=== PATIENT | female | born 1970 | race African-American/Black ===

== ENCOUNTER 2022-02-08 11:07 | Inpatient (IN) | payer BC ==
[2022-02-08] VITALS (36 sets, daily range): BP systolic 101–176; BP diastolic 63–112
[~2022-02-08] VITALS: Ht 167.6 cm; Wt 72.6 kg
[~2022-02-08 11:07] MED LIST: ETOMIDATE 2MG/ML 10ML VIAL IV ONE; SUCCINYLCHOLINE CHLORIDE 200MG/10ML IV ONE
[2022-02-08] MEDS ORDERED: MIDAZOLAM HCL 2 MG/2 ML VIAL IV ONE (11:45)
[2022-02-08] MEDS ORDERED: SODIUM CHLORIDE 0.9% 1,000 ML IV ONE (11:45)
[2022-02-08] MEDS ORDERED: OLANZAPINE 10 MG/VIAL IM ONE (12:00)
[2022-02-08 12:28] LABS: BASOPHILS % 0.3 % (0.0-2.0); EOSINOPHILS % 0.1 % (0.0-5.0); HEMATOCRIT. 45.4 % (36.0-48.0); LYMPHOCYTES % 39.1 % (20.0-50.0); MEAN CORPUSCULAR HEMOGLOBIN 29.9 pg (28.0-32.0); MEAN CORPUSCULAR VOLUME 96.8 fL (81.0-99.0); MONOCYTES % 4.8 % (2.0-8.0); NEUTROPHILS % 55.7 % (40.0-76.0); PLATELET 126 x1000/uL (130-400); RED BLOOD CELL COUNT 4.69 mill/uL (4.2-5.4); RED CELL DISTRIBUTION WIDTH 14.6 % (11.6-14.6)
[2022-02-08] MEDS ORDERED: ACETAMINOPHEN 650MG SUPP PR ONE (12:30)
[2022-02-08 12:32] LABS: CHLORIDE 105 mEq/L (98-107)
[2022-02-08 12:36] LABS: HCG SCREEN NEGATIVE
[2022-02-08 12:40] LABS: ETHANOL BLOOD < 10 mg/dL
[2022-02-08] MEDS ORDERED: LORAZEPAM 2MG/ML CPJ IV ONE (12:45)
[2022-02-08] MEDS ORDERED: PIPERACILLIN/TAZ 3.375G PREMIX 50 ML IV ONE (13:00)
[2022-02-08] MEDS ORDERED: ETOMIDATE 2MG/ML 10ML VIAL IV ONE (13:00)
[2022-02-08] MEDS ORDERED: SUCCINYLCHOLINE CHLORIDE 200MG/10ML IV ONE (13:00)
[2022-02-08] MEDS ORDERED: VANCOMYCIN 1G PREMIX 200 ML IV ONE (13:00)
[2022-02-08] MEDS ORDERED: PROPOFOL 10MG/ML 100ML 100 ML IV ONE (13:00)
[2022-02-08 13:29] LABS: PROTHROMBIN TIME 10.9 sec (9.6-11.0)
[2022-02-08] MEDS ORDERED: LEVETIRACETAM 1000MG PREMIX 100 ML IV ONE (13:30)
[2022-02-08 13:58] LABS: BG BASE EXCESS -1.3 mmol/L (-2.0-2.0); BG CARBOXYHEMOGLOBIN 0.3 % (0.5-1.5); BG DEOXYHEMOGLOBIN 0.9 % (0.0-5.0); BG FRACTION INSPIRED OXYGEN 60; BG HCO3 ACT 23.7 mmol/L (22.0-26.0); BG METHEMOGLOBIN 0.2 % (0.0-1.5); BG OXYGEN SATURATION 99.1 % (92.0-98.5); BG OXYHEMOGLOBIN 98.6 % (94.0-97.0); BG PCO2 40.9 mmHg (35.0-45.0); BG PH 7.381 (7.350-7.450); BG PO2 286.9 mmHg (75.0-100.0); BG SAMPLE SITE RIGHT BRACHIAL; BG TOTAL HEMOGLOBIN 13.5 g/dL (12.0-18.0); BG VENT MODE VENT - AC
[2022-02-08] MEDS ORDERED: MIDAZOLAM HCL 100 MG in DEXT 5% WATER 80 ML IV ONE ×4 (14:30)
[2022-02-08] MEDS ORDERED: MORPHINE SULFATE 10 MG/ML CPJ IV ONE (14:30)
[2022-02-08] MEDS ORDERED: VECURONIUM BROMIDE 10 MG/VIAL IV ONE (14:30)
[2022-02-08] MEDS ORDERED: NITROGLYCERIN 0.4MG TABLET SL SL PRN (14:45)
[2022-02-08] MEDS ORDERED: SODIUM CHLORIDE 0.9% 1000ML BAG (SEPSIS BOLUS) IV ONE (14:45)
[2022-02-08] MEDS ORDERED: MAGNESIUM/ALUMINUM HYDROXIDE/SIMETHICONE 30ML UDC PO PRN (14:45)
[2022-02-08] MEDS ORDERED: PIPERACILLIN/TAZ 3.375G PREMIX 50 ML IV SCH (14:45)
[2022-02-08] MEDS ORDERED: NA PHOS,M-B/NA PHOS,DI-BA ENEMA 118ML PR PRN (14:45)
[2022-02-08] MEDS ORDERED: LEVETIRACETAM 500 MG in SODIUM CHLORIDE 0.9% 100 ML IV SCH (14:45)
[2022-02-08] MEDS ORDERED: IPRATROPIUM/ALBUTEROL 0.5-3(2.5)MG/3ML NEB NEB PRN (14:45)
[2022-02-08] MEDS ORDERED: GUAIFENESIN 200MG/10ML SUGAR FREE UDC PO PRN (14:45)
[2022-02-08] MEDS ORDERED: DIAZEPAM 5 MG/ML 2ML CPJ IV PRN (14:45)
[2022-02-08] MEDS ORDERED: ONDANSETRON HCL 4MG/2ML INJ IV PRN (14:45)
[2022-02-08] MEDS ORDERED: KETOROLAC 15MG/ML VIAL IV PRN (14:45)
[2022-02-08] MEDS ORDERED: ACETAMINOPHEN 325MG TABLET PO PRN (14:45)
[2022-02-08] MEDS: DEXT 5%/LACTATED RINGERS 1,000 ML IV SCH (15:41)
[2022-02-08] MEDS: ENOXAPARIN 30MG/0.3ML SYR SUBCUT SCH (15:42)
[2022-02-08] MEDS ORDERED: KCL 20MEQ/100ML PREMIX 100 ML IV NR (16:00)
[2022-02-08] MEDS: PROPOFOL 10MG/ML 100ML 100 ML IV PRN ×3 (16:00→22:29)
[2022-02-08 16:14] LABS: CLARITY URINE TURBID (CLEAR); COLOR URINE YELLOW (YELLOW); KETONES URINE TRACE (NEGATIVE); LEUKOCYTE ESTERASE URINE NEGATIVE (NEGATIVE); NITRITE URINE NEGATIVE (NEGATIVE); OCCULT BLOOD URINE 2+ (NEGATIVE); PH URINE 5.5 (4.5-8.0); PROTEIN URINE 2+ (NEGATIVE); SPECIFIC GRAVITY URINE 1.017 (1.005-1.030); UROBILINOGEN URINE 0.2 E.U./dL (0.2-1.0)
[2022-02-08 16:31] LABS: T4 FREE 1.07 ng/dL (0.76-1.46)
[2022-02-08 16:48] LABS: VITAMIN B12 SERUM 697 pg/mL (211-911)
[2022-02-08 16:55] LABS: FOLIC ACID (FOLATE) SERUM > 20.00 ng/mL (>5.38)
[2022-02-08 17:21] LABS: *AMPHETAMINES SCREEN URINE NEGATIVE (NEGATIVE); *BARBITURATES SCREEN URINE NEGATIVE (NEGATIVE); *COCAINE SCREEN URINE NEGATIVE (NEGATIVE); CANNABINOID URINE SCREEN NEGATIVE (NEGATIVE); METHADONE URINE SCREEN NEGATIVE (NEGATIVE); OPIATES URINE SCREEN NEGATIVE (NEGATIVE); PHENCYCLIDINE URINE SCREEN NEGATIVE (NEGATIVE)
[2022-02-08] MEDS: PIPERACILLIN/TAZOBACTAM 3.375G in DEXT 5% WATER 50ML IV SCH ×2 (17:27→22:25)
[2022-02-08 17:42] LABS: *BENZODIAZEPINES SCREEN URINE PRESUMTIVE POSITIVE (NEGATIVE)
[2022-02-08] MEDS: VANCOMYCIN 500MG PREMIX 100 ML IV SCH (17:51)
[2022-02-08] MEDS: IPRATROPIUM/ALBUTEROL 0.5-3(2.5)MG/3ML NEB HHN SCH ×2 (19:44→23:28)
[2022-02-08] MEDS: LEVETIRACETAM 500MG PREMIX 100 ML IV SCH (20:34)
[2022-02-09] VITALS (91 sets, daily range): BP systolic 85–138; BP diastolic 23–95
[2022-02-09 00:43] LABS: CREATINE KINASE 699 IU/L (26-192); CREATINE KINASE MB FRACTION 3.6 ng/mL (0.5-3.6)
[2022-02-09] MEDS: PROPOFOL 10MG/ML 100ML 100 ML IV PRN ×3 (03:15→20:41)
[2022-02-09] MEDS: IPRATROPIUM/ALBUTEROL 0.5-3(2.5)MG/3ML NEB HHN SCH ×5 (03:21→19:54)
[2022-02-09] MEDS: DEXT 5%/LACTATED RINGERS 1,000 ML IV SCH ×2 (04:05→11:00)
[2022-02-09 05:49] LABS: BASOPHILS % 0.4 % (0.0-2.0); EOSINOPHILS % 0.2 % (0.0-5.0); HEMATOCRIT. 35.7 % (36.0-48.0); HEMOGLOBIN. 11.6 g/dL (12.0-16.0); LYMPHOCYTES % 39.9 % (20.0-50.0); MEAN CORPUSCULAR HEMOGLOBIN 29.8 pg (28.0-32.0); MEAN CORPUSCULAR VOLUME 91.7 fL (81.0-99.0); MEAN PLATELET VOLUME 9.9 fl (7.4-10.4); NEUTROPHILS % 47.5 % (40.0-76.0); PLATELET 103 x1000/uL (130-400); RED BLOOD CELL COUNT 3.89 mill/uL (4.2-5.4); RED CELL DISTRIBUTION WIDTH 14.1 % (11.6-14.6)
[2022-02-09] MEDS: VANCOMYCIN 500MG PREMIX 100 ML IV SCH (05:54)
[2022-02-09] MEDS: PIPERACILLIN/TAZOBACTAM 3.375G in DEXT 5% WATER 50ML IV SCH ×3 (05:54→22:59)
[2022-02-09 06:12] LABS: CHLORIDE 112 mEq/L (98-107)
[2022-02-09 06:26] LABS: CREATINE KINASE 756 IU/L (26-192); CREATINE KINASE MB FRACTION 3.5 ng/mL (0.5-3.6); PHOSPHORUS 2.4 mg/dL (2.5-4.9)
[2022-02-09] MEDS: PANTOPRAZOLE SODIUM 40 MG/VIAL IV SCH (08:37)
[2022-02-09 08:58] LABS: BG BASE EXCESS -3.7 mmol/L (-2.0-2.0); BG CARBOXYHEMOGLOBIN 0.4 % (0.5-1.5); BG DEOXYHEMOGLOBIN 1.8 % (0.0-5.0); BG FRACTION INSPIRED OXYGEN 40; BG HCO3 ACT 20.6 mmol/L (22.0-26.0); BG METHEMOGLOBIN 0.2 % (0.0-1.5); BG OXYGEN SATURATION 98.2 % (92.0-98.5); BG OXYHEMOGLOBIN 97.6 % (94.0-97.0); BG PCO2 34.9 mmHg (35.0-45.0); BG PH 7.388 (7.350-7.450); BG PO2 142.6 mmHg (75.0-100.0); BG SAMPLE SITE LEFT BRACHIAL; BG TOTAL HEMOGLOBIN 12.7 g/dL (12.0-18.0); BG VENT MODE VENT - AC
[2022-02-09] MEDS: LEVETIRACETAM 500MG PREMIX 100 ML IV SCH ×2 (09:26→20:38)
[2022-02-09] MEDS: ACETAMINOPHEN 325MG TABLET PO PRN (09:42)
[2022-02-09] MEDS: ENOXAPARIN 30MG/0.3ML SYR SUBCUT SCH (14:47)
[2022-02-09] MEDS ORDERED: PROPOFOL 10MG/ML 100ML 100 ML IV PRN (16:45)
[2022-02-09] MEDS: VANCOMYCIN 1G PREMIX 200 ML IV SCH (18:19)
[2022-02-10] VITALS (66 sets, daily range): BP systolic 80–159; BP diastolic 45–97
[2022-02-10] MEDS ORDERED: VANCOMYCIN 750MG PREMIX 150 ML IV SCH
[2022-02-10] MEDS: IPRATROPIUM/ALBUTEROL 0.5-3(2.5)MG/3ML NEB HHN SCH ×6 (00:30→20:19)
[2022-02-10] MEDS: PROPOFOL 10MG/ML 100ML 100 ML IV PRN (03:11)
[2022-02-10 05:19] LABS: CHLORIDE 114 mEq/L (98-107)
[2022-02-10 05:21] LABS: BASOPHILS % 0.4 % (0.0-2.0); EOSINOPHILS % 1.3 % (0.0-5.0); HEMATOCRIT. 33.5 % (36.0-48.0); HEMOGLOBIN. 11.1 g/dL (12.0-16.0); MEAN CORPUSCULAR HEMOGLOBIN 30.2 pg (28.0-32.0); MONOCYTES % 9.5 % (2.0-8.0); NEUTROPHILS % 58.8 % (40.0-76.0); PLATELET 114 x1000/uL (130-400); RED BLOOD CELL COUNT 3.68 mill/uL (4.2-5.4); RED CELL DISTRIBUTION WIDTH 14.4 % (11.6-14.6)
[2022-02-10 05:30] LABS: CREATINE KINASE 568 IU/L (26-192)
[2022-02-10] MEDS: PIPERACILLIN/TAZOBACTAM 3.375G in DEXT 5% WATER 50ML IV SCH ×3 (05:52→22:52)
[2022-02-10] MEDS: VANCOMYCIN 1G PREMIX 200 ML IV SCH ×2 (05:53→17:18)
[2022-02-10] MEDS: DEXT 5%/LACTATED RINGERS 1,000 ML IV SCH ×2 (05:53→23:05)
[2022-02-10] MEDS ORDERED: KETOROLAC 15MG/ML VIAL IV PRN (07:45)
[2022-02-10] MEDS ORDERED: DIAZEPAM 5 MG/ML 2ML CPJ IV PRN (07:45)
[2022-02-10] MEDS: PANTOPRAZOLE SODIUM 40 MG/VIAL IV SCH (08:38)
[2022-02-10] MEDS: LEVETIRACETAM 500MG PREMIX 100 ML IV SCH ×2 (08:38→22:53)
[2022-02-10 08:41] LABS: BG BASE EXCESS 0.2 mmol/L (-2.0-2.0); BG CARBOXYHEMOGLOBIN 0.3 % (0.5-1.5); BG DEOXYHEMOGLOBIN 1.9 % (0.0-5.0); BG FRACTION INSPIRED OXYGEN 30; BG HCO3 ACT 23.6 mmol/L (22.0-26.0); BG METHEMOGLOBIN 0.2 % (0.0-1.5); BG OXYGEN SATURATION 98.1 % (92.0-98.5); BG OXYHEMOGLOBIN 97.6 % (94.0-97.0); BG PH 7.459 (7.350-7.450); BG PO2 139.8 mmHg (75.0-100.0); BG SAMPLE SITE RIGHT RADIAL; BG TOTAL HEMOGLOBIN 11.5 g/dL (12.0-18.0); BG VENT MODE VENT - AC
[2022-02-10] MEDS ORDERED: POTASSIUM CHLORIDE 20MEQ/PACKET PO SCH (09:00)
[2022-02-10 12:35] LABS: BG BASE EXCESS -0.4 mmol/L (-2.0-2.0); BG CARBOXYHEMOGLOBIN 0.3 % (0.5-1.5); BG DEOXYHEMOGLOBIN 1.8 % (0.0-5.0); BG FRACTION INSPIRED OXYGEN 30; BG HCO3 ACT 23.6 mmol/L (22.0-26.0); BG METHEMOGLOBIN 0.3 % (0.0-1.5); BG OXYGEN SATURATION 98.2 % (92.0-98.5); BG OXYHEMOGLOBIN 97.6 % (94.0-97.0); BG PCO2 36.3 mmHg (35.0-45.0); BG PH 7.431 (7.350-7.450); BG PO2 139.4 mmHg (75.0-100.0); BG SAMPLE SITE RIGHT RADIAL; BG TOTAL HEMOGLOBIN 11.7 g/dL (12.0-18.0); BG VENT MODE VENT - CPAP
[2022-02-10] MEDS ORDERED: MULT-1146 PO (12:50)
[2022-02-10] MEDS ORDERED: HYDR25TA PO (12:50)
[2022-02-10] MEDS: ENOXAPARIN 40MG/0.4ML SYR SUBCUT SCH (14:40)
[2022-02-11] VITALS (17 sets, daily range): BP systolic 144–163; BP diastolic 74–107
[2022-02-11] MEDS: IPRATROPIUM/ALBUTEROL 0.5-3(2.5)MG/3ML NEB HHN SCH ×6 (00:47→20:36)
[2022-02-11 05:23] LABS: HEMATOCRIT 35.7 % (36.0-48.0); HEMOGLOBIN 11.8 g/dL (12.0-16.0); MEAN CORPUSCULAR HEMOGLOBIN 29.8 pg (28.0-32.0); MEAN CORPUSCULAR VOLUME 90.2 fL (81.0-99.0); PLATELET 147 x1000/uL (130-400); RED BLOOD CELL COUNT 3.96 mill/uL (4.2-5.4)
[2022-02-11 05:45] LABS: CHLORIDE 111 mEq/L (98-107)
[2022-02-11 05:53] LABS: VANCOMYCIN TROUGH 10.5 ug/mL (5.0-10.0)
[2022-02-11] MEDS: PIPERACILLIN/TAZOBACTAM 3.375G in DEXT 5% WATER 50ML IV SCH ×3 (06:30→23:26)
[2022-02-11] MEDS: VANCOMYCIN 1G PREMIX 200 ML IV SCH ×2 (06:30→16:41)
[2022-02-11 09:14] LABS: BG BASE EXCESS 3.3 mmol/L (-2.0-2.0); BG CARBOXYHEMOGLOBIN 0.5 % (0.5-1.5); BG DEOXYHEMOGLOBIN 6.9 % (0.0-5.0); BG FRACTION INSPIRED OXYGEN 28; BG HCO3 ACT 27.4 mmol/L (22.0-26.0); BG OXYGEN SATURATION 93.1 % (92.0-98.5); BG OXYHEMOGLOBIN 92.6 % (94.0-97.0); BG PCO2 39.8 mmHg (35.0-45.0); BG PH 7.456 (7.350-7.450); BG PO2 66.9 mmHg (75.0-100.0); BG SAMPLE SITE RIGHT RADIAL; BG TOTAL HEMOGLOBIN 12.1 g/dL (12.0-18.0); BG VENT MODE NASAL CANNULA
[2022-02-11] MEDS: PANTOPRAZOLE SODIUM 40 MG/VIAL IV SCH (09:16)
[2022-02-11] MEDS: DEXT 5%/LACTATED RINGERS 1,000 ML IV SCH (09:17)
[2022-02-11] MEDS: LEVETIRACETAM 500MG PREMIX 100 ML IV SCH (09:17)
[2022-02-11] MEDS ORDERED: THROAT LOZENGES-BENZOCAINE/MENTH/CETYLPYRD CL LOZENGES MM PRN (12:00)
[2022-02-11] MEDS ORDERED: PHENOL/SODIUM PHENOLATE 1.4% SRPAY 177ML MM NR (13:00)
[2022-02-11] MEDS: ENOXAPARIN 40MG/0.4ML SYR SUBCUT SCH (14:00)
[2022-02-11] MEDS ORDERED: LORAZEPAM 2MG/ML CPJ IV PRN (14:45)
[2022-02-11] MEDS: LEVETIRACETAM 1000MG PREMIX 100 ML IV SCH (18:01)
[2022-02-11] MEDS ORDERED: GADOTERATE MEGLUMINE 5 MMOL/10 ML VIAL IV ONE (19:37)
[2022-02-12] VITALS: BP 136/72
[2022-02-12] MEDS: IPRATROPIUM/ALBUTEROL 0.5-3(2.5)MG/3ML NEB HHN SCH ×5 (00:23→20:10)
[2022-02-12] MEDS: VANCOMYCIN 1G PREMIX 200 ML IV SCH ×2 (00:31→05:57)
[2022-02-12] MEDS: DEXT 5%/LACTATED RINGERS 1,000 ML IV SCH ×2 (03:50→16:01)
[2022-02-12 04:00] VITALS: BP 150/78
[2022-02-12 07:34] LABS: CHLORIDE 109 mEq/L (98-107)
[2022-02-12 07:40] LABS: VANCOMYCIN TROUGH 23.4 ug/mL (5.0-10.0)
[2022-02-12] MEDS ORDERED: LIDOCAINE HCL/PF 1% 10 MG/ML 5ML VIAL ONE (07:44)
[2022-02-12 08:00] VITALS: BP 145/65
[2022-02-12] MEDS: PANTOPRAZOLE SODIUM 40 MG/VIAL IV SCH (09:31)
[2022-02-12] MEDS: LEVETIRACETAM 1000MG PREMIX 100 ML IV SCH (09:31)
[2022-02-12 10:25] LABS: GLUCOSE CSF 95 mg/dL (41-75)
[2022-02-12] MEDS: PIPERACILLIN/TAZOBACTAM 3.375G in DEXT 5% WATER 50ML IV SCH ×2 (10:30→16:00)
[2022-02-12] MEDS: PHENYTOIN SODIUM 1,000 MG in SODIUM CHLORIDE 0.9% 100 ML IV SCH (11:50)
[2022-02-12 12:00] VITALS: BP 157/83
[2022-02-12] MEDS: KCL 20MEQ/100ML PREMIX 100 ML IV SCH ×2 (14:30→16:42)
[2022-02-12] MEDS ORDERED: LEVETIRACETAM 1000MG PREMIX 100 ML IV NR (14:30)
[2022-02-12] MEDS: ENOXAPARIN 40MG/0.4ML SYR SUBCUT SCH (14:32)
[2022-02-12 16:00] VITALS: BP 145/77
[2022-02-12] MEDS ORDERED: VANCOMYCIN 750MG PREMIX 150 ML IV SCH (18:00)
[2022-02-12] MEDS ORDERED: LEVETIRACETAM 500 MG in SODIUM CHLORIDE 0.9% 100 ML IV PRN (19:45)
[2022-02-12 20:00] VITALS: BP 165/89
[2022-02-12] MEDS: LEVETIRACETAM 1,500 MG in SODIUM CHLORIDE 0.9% 100 ML IV SCH (21:29)
[2022-02-12] MEDS: METHYLPREDNISOLONE SOD SUCC 1,000 MG in DEXT 5% WATER 100 ML IV SCH (22:18)
[2022-02-13] VITALS (8 sets, daily range): BP systolic 142–195; BP diastolic 79–133
[2022-02-13] MEDS: IPRATROPIUM/ALBUTEROL 0.5-3(2.5)MG/3ML NEB HHN SCH ×4 (00:05→12:25)
[2022-02-13 06:41] LABS: BASOPHILS % 0.1 % (0.0-2.0); HEMATOCRIT. 36.6 % (36.0-48.0); HEMOGLOBIN. 12.1 g/dL (12.0-16.0); LYMPHOCYTES % 14.9 % (20.0-50.0); MEAN CORPUSCULAR HEMOGLOBIN 29.7 pg (28.0-32.0); MEAN CORPUSCULAR VOLUME 89.8 fL (81.0-99.0); MEAN PLATELET VOLUME 9.5 fl (7.4-10.4); MONOCYTES % 2.1 % (2.0-8.0); NEUTROPHILS % 82.9 % (40.0-76.0); PLATELET 218 x1000/uL (130-400); RED BLOOD CELL COUNT 4.07 mill/uL (4.2-5.4); RED CELL DISTRIBUTION WIDTH 13.5 % (11.6-14.6)
[2022-02-13 07:01] LABS: CHLORIDE 100 mEq/L (98-107)
[2022-02-13] MEDS: LEVETIRACETAM 1,500 MG in SODIUM CHLORIDE 0.9% 100 ML IV SCH ×2 (10:31→20:45)
[2022-02-13] MEDS: PHENYTOIN SODIUM 1,000 MG in SODIUM CHLORIDE 0.9% 100 ML IV SCH (10:32)
[2022-02-13] MEDS: PANTOPRAZOLE SODIUM 40 MG/VIAL IV SCH (11:07)
[2022-02-13] MEDS: CLONIDINE 0.1MG TABLET PO PRN ×2 (11:11→17:26)
[2022-02-13] MEDS: ACETAMINOPHEN 325MG TABLET PO PRN ×2 (11:16→16:22)
[2022-02-13 11:23] LABS: BG BASE EXCESS 6.8 mmol/L (-2.0-2.0); BG CARBOXYHEMOGLOBIN 0.6 % (0.5-1.5); BG DEOXYHEMOGLOBIN 14.1 % (0.0-5.0); BG FRACTION INSPIRED OXYGEN 28; BG HCO3 ACT 34.8 mmol/L (22.0-26.0); BG METHEMOGLOBIN 0.3 % (0.0-1.5); BG OXYGEN SATURATION 85.8 % (92.0-98.5); BG PCO2 65.3 mmHg (35.0-45.0); BG PH 7.344 (7.350-7.450); BG PO2 55.4 mmHg (75.0-100.0); BG SAMPLE SITE RIGHT RADIAL; BG TOTAL HEMOGLOBIN 13.9 g/dL (12.0-18.0); BG VENT MODE NASAL CANNULA
[2022-02-13] MEDS: DEXT 5%/LACTATED RINGERS 1,000 ML IV SCH ×2 (11:25→12:57)
[2022-02-13] MEDS: DOXYCYCLINE HYCLATE 100MG CAPSULE PO SCH ×2 (12:55→16:21)
[2022-02-13] MEDS: ENOXAPARIN 40MG/0.4ML SYR SUBCUT SCH (12:55)
[2022-02-13] MEDS ORDERED: AMLODIPINE 5MG TABLET PO SCH (13:30)
[2022-02-13] MEDS: NITROGLYCERIN OINT 1GM/INCH UDPKT TD SCH ×2 (13:55→21:21)
[2022-02-13] MEDS ORDERED: LEVETIRACETAM 500MG PREMIX 100 ML IV PRN (14:15)
[2022-02-13] MEDS: IPRATROPIUM BROMIDE (0.02%) 0.5MG/2.5ML NEB HHN SCH ×2 (17:28→20:34)
[2022-02-13] MEDS: AMLODIPINE 5MG TABLET PO SCH (21:22)
[2022-02-13] MEDS ORDERED: PHENYTOIN SODIUM 1,000 MG in SODIUM CHLORIDE 0.9% 100 ML IV NR (23:00)
[2022-02-13] MEDS: PROPOFOL 10MG/ML 100ML 100 ML IV PRN (23:58)
[2022-02-14] VITALS (52 sets, daily range): BP systolic 79–147; BP diastolic 47–96
[2022-02-14] MEDS: METHYLPREDNISOLONE SOD SUCC 1,000 MG in DEXT 5% WATER 100 ML IV SCH (00:52)
[2022-02-14] MEDS: IPRATROPIUM BROMIDE (0.02%) 0.5MG/2.5ML NEB HHN SCH ×4 (01:36→20:04)
[2022-02-14] MEDS ORDERED: IOHEXOL-350 100 ML BOTTLE ONE (03:06)
[2022-02-14 03:20] LABS: BG BASE EXCESS 4.2 mmol/L (-2.0-2.0); BG CARBOXYHEMOGLOBIN 0.3 % (0.5-1.5); BG DEOXYHEMOGLOBIN 1.4 % (0.0-5.0); BG FRACTION INSPIRED OXYGEN 100; BG HCO3 ACT 25.7 mmol/L (22.0-26.0); BG METHEMOGLOBIN 0.2 % (0.0-1.5); BG OXYGEN SATURATION 98.6 % (92.0-98.5); BG OXYHEMOGLOBIN 98.1 % (94.0-97.0); BG PCO2 29.8 mmHg (35.0-45.0); BG PH 7.554 (7.350-7.450); BG PO2 139.2 mmHg (75.0-100.0); BG SAMPLE SITE RIGHT RADIAL; BG TOTAL HEMOGLOBIN 13.9 g/dL (12.0-18.0); BG VENT MODE VENT - AC
[2022-02-14] MEDS: DEXT 5%/LACTATED RINGERS 1,000 ML IV SCH ×2 (04:22→17:54)
[2022-02-14 05:25] LABS: BASOPHILS % 0.2 % (0.0-2.0); HEMATOCRIT. 40.6 % (36.0-48.0); HEMOGLOBIN. 13.3 g/dL (12.0-16.0); LYMPHOCYTES % 15.1 % (20.0-50.0); MEAN CORPUSCULAR HEMOGLOBIN 29.4 pg (28.0-32.0); MEAN CORPUSCULAR VOLUME 89.4 fL (81.0-99.0); MEAN PLATELET VOLUME 9.5 fl (7.4-10.4); MONOCYTES % 14.3 % (2.0-8.0); NEUTROPHILS % 70.4 % (40.0-76.0); PLATELET 270 x1000/uL (130-400); RED BLOOD CELL COUNT 4.54 mill/uL (4.2-5.4); RED CELL DISTRIBUTION WIDTH 13.5 % (11.6-14.6)
[2022-02-14 05:45] LABS: CHLORIDE 99 mEq/L (98-107)
[2022-02-14] MEDS: NITROGLYCERIN OINT 1GM/INCH UDPKT TD SCH ×3 (05:55→21:52)
[2022-02-14] MEDS: PROPOFOL 10MG/ML 100ML 100 ML IV PRN ×2 (06:37→17:41)
[2022-02-14] MEDS ORDERED: VECURONIUM BROMIDE 10 MG/VIAL IV ONE (08:27)
[2022-02-14] MEDS ORDERED: SODIUM CHLORIDE 0.9% 10ML VIAL ONE (08:27)
[2022-02-14] MEDS ORDERED: ETOMIDATE 2MG/ML 10ML VIAL IV ONE (08:27)
[2022-02-14 08:48] LABS: BG BASE EXCESS 4.6 mmol/L (-2.0-2.0); BG CARBOXYHEMOGLOBIN 0.1 % (0.5-1.5); BG FRACTION INSPIRED OXYGEN 80; BG HCO3 ACT 28.4 mmol/L (22.0-26.0); BG METHEMOGLOBIN 0.4 % (0.0-1.5); BG OXYHEMOGLOBIN 98.5 % (94.0-97.0); BG PCO2 39.6 mmHg (35.0-45.0); BG PH 7.474 (7.350-7.450); BG PO2 214.3 mmHg (75.0-100.0); BG SAMPLE SITE RIGHT RADIAL; BG TOTAL HEMOGLOBIN 14.6 g/dL (12.0-18.0); BG VENT MODE VENT - AC
[2022-02-14] MEDS: FAMOTIDINE 20MG/2ML VIAL IV SCH ×2 (10:25→21:12)
[2022-02-14] MEDS: AMLODIPINE 5MG TABLET PO SCH ×2 (10:26→21:00)
[2022-02-14] MEDS: ACYCLOVIR INJ 750 MG in DEXT 5% WATER 100 ML IV SCH ×2 (10:26→18:52)
[2022-02-14] MEDS: PHENYTOIN SODIUM 100MG/2ML VIAL IV SCH ×2 (10:28→17:54)
[2022-02-14] MEDS ORDERED: LACTATED RINGERS 1,000 ML IV SCH (10:30)
[2022-02-14] MEDS ORDERED: KCL 20MEQ/100ML PREMIX 100 ML IV NR (13:00)
[2022-02-14] MEDS: LEVETIRACETAM 1,500 MG in SODIUM CHLORIDE 0.9% 100 ML IV SCH ×2 (14:04→21:21)
[2022-02-14] MEDS: DOXYCYCLINE HYCLATE 100MG CAPSULE PO SCH ×2 (14:04→17:40)
[2022-02-14] MEDS: ENOXAPARIN 40MG/0.4ML SYR SUBCUT SCH (14:07)
[2022-02-14] MEDS: PIPERACILLIN/TAZOBACTAM 3.375 G in DEXTROSE 5% WATER 50 ML IV SCH ×2 (14:08→21:50)
[2022-02-15] VITALS (46 sets, daily range): BP systolic 90–118; BP diastolic 47–73
[2022-02-15] MEDS: DEXT 5%/LACTATED RINGERS 1,000 ML IV SCH ×3 (01:16→16:55)
[2022-02-15] MEDS: ACYCLOVIR INJ 750 MG in DEXT 5% WATER 100 ML IV SCH ×3 (01:17→17:05)
[2022-02-15] MEDS: IPRATROPIUM BROMIDE (0.02%) 0.5MG/2.5ML NEB HHN SCH ×4 (03:48→22:00)
[2022-02-15] MEDS: PROPOFOL 10MG/ML 100ML 100 ML IV PRN ×4 (04:01→21:04)
[2022-02-15 05:40] LABS: BASOPHILS % 0.2 % (0.0-2.0); HEMATOCRIT. 36.1 % (36.0-48.0); HEMOGLOBIN. 11.9 g/dL (12.0-16.0); LYMPHOCYTES % 18.9 % (20.0-50.0); MEAN CORPUSCULAR HEMOGLOBIN 29.5 pg (28.0-32.0); MEAN CORPUSCULAR VOLUME 89.8 fL (81.0-99.0); MEAN PLATELET VOLUME 9.7 fl (7.4-10.4); MONOCYTES % 13.1 % (2.0-8.0); NEUTROPHILS % 67.8 % (40.0-76.0); PLATELET 226 x1000/uL (130-400); RED BLOOD CELL COUNT 4.02 mill/uL (4.2-5.4); RED CELL DISTRIBUTION WIDTH 13.5 % (11.6-14.6)
[2022-02-15 05:57] LABS: CHLORIDE 104 mEq/L (98-107)
[2022-02-15] MEDS: NITROGLYCERIN OINT 1GM/INCH UDPKT TD SCH ×3 (06:00→21:56)
[2022-02-15] MEDS: PIPERACILLIN/TAZOBACTAM 3.375 G in DEXTROSE 5% WATER 50 ML IV SCH ×3 (06:28→21:55)
[2022-02-15] MEDS: FAMOTIDINE 20MG/2ML VIAL IV SCH ×2 (08:11→21:02)
[2022-02-15] MEDS: AMLODIPINE 5MG TABLET PO SCH ×2 (08:11→21:00)
[2022-02-15] MEDS: PHENYTOIN SODIUM 100MG/2ML VIAL IV SCH ×2 (08:11→16:55)
[2022-02-15] MEDS: DOXYCYCLINE HYCLATE 100MG CAPSULE PO SCH ×2 (08:11→17:05)
[2022-02-15] MEDS: LEVETIRACETAM 1,500 MG in SODIUM CHLORIDE 0.9% 100 ML IV SCH ×2 (08:58→21:01)
[2022-02-15 09:08] LABS: BG BASE EXCESS 7.7 mmol/L (-2.0-2.0); BG CARBOXYHEMOGLOBIN 0.1 % (0.5-1.5); BG DEOXYHEMOGLOBIN 1.3 % (0.0-5.0); BG FRACTION INSPIRED OXYGEN 50; BG HCO3 ACT 31.5 mmol/L (22.0-26.0); BG METHEMOGLOBIN 0.3 % (0.0-1.5); BG OXYGEN SATURATION 98.7 % (92.0-98.5); BG OXYHEMOGLOBIN 98.3 % (94.0-97.0); BG PCO2 40.6 mmHg (35.0-45.0); BG PH 7.507 (7.350-7.450); BG PO2 152.7 mmHg (75.0-100.0); BG SAMPLE SITE RIGHT BRACHIAL; BG TOTAL HEMOGLOBIN 12.1 g/dL (12.0-18.0); BG VENT MODE VENT - AC
[2022-02-15] MEDS ORDERED: KCL 20MEQ/100ML PREMIX 100 ML IV SCH (09:30)
[2022-02-15] MEDS ORDERED: FENTANYL 2500MCG/250ML PMX 250 ML IV SCH (11:00)
[2022-02-15] MEDS: ENOXAPARIN 40MG/0.4ML SYR SUBCUT SCH (13:03)
[2022-02-16] VITALS (43 sets, daily range): BP systolic 108–148; BP diastolic 56–103
[2022-02-16] MEDS: DEXT 5%/LACTATED RINGERS 1,000 ML IV SCH ×3 (01:42→17:30)
[2022-02-16] MEDS: ACYCLOVIR INJ 750 MG in DEXT 5% WATER 100 ML IV SCH ×3 (01:49→18:47)
[2022-02-16] MEDS: IPRATROPIUM BROMIDE (0.02%) 0.5MG/2.5ML NEB HHN SCH ×4 (04:00→20:21)
[2022-02-16 04:13] LABS: HIV SCREEN 4G Non Reactive (Non Reactive)
[2022-02-16] MEDS ORDERED: PROPOFOL 10MG/ML 100ML 100 ML IV PRN (04:30)
[2022-02-16] MEDS: NITROGLYCERIN OINT 1GM/INCH UDPKT TD SCH ×3 (05:54→21:41)
[2022-02-16] MEDS: PIPERACILLIN/TAZOBACTAM 3.375 G in DEXTROSE 5% WATER 50 ML IV SCH ×3 (05:55→21:41)
[2022-02-16 06:09] LABS: HEMATOCRIT 36.3 % (36.0-48.0); HEMOGLOBIN 11.9 g/dL (12.0-16.0); MEAN CORPUSCULAR HEMOGLOBIN 29.8 pg (28.0-32.0); MEAN CORPUSCULAR VOLUME 90.9 fL (81.0-99.0); PLATELET 213 x1000/uL (130-400); RED BLOOD CELL COUNT 3.99 mill/uL (4.2-5.4); RED CELL DISTRIBUTION WIDTH 13.3 % (11.6-14.6)
[2022-02-16 06:26] LABS: CHLORIDE 105 mEq/L (98-107)
[2022-02-16 07:48] LABS: BG BASE EXCESS 6.9 mmol/L (-2.0-2.0); BG CARBOXYHEMOGLOBIN 0.3 % (0.5-1.5); BG DEOXYHEMOGLOBIN 2.4 % (0.0-5.0); BG HCO3 ACT 31.1 mmol/L (22.0-26.0); BG METHEMOGLOBIN 0.3 % (0.0-1.5); BG OXYGEN SATURATION 97.6 % (92.0-98.5); BG PCO2 42.4 mmHg (35.0-45.0); BG PH 7.483 (7.350-7.450); BG PO2 106.4 mmHg (75.0-100.0); BG SAMPLE SITE RIGHT RADIAL; BG TOTAL HEMOGLOBIN 12.2 g/dL (12.0-18.0); BG VENT MODE VENT - AC
[2022-02-16] MEDS: LEVETIRACETAM 1,500 MG in SODIUM CHLORIDE 0.9% 100 ML IV SCH ×2 (08:57→21:40)
[2022-02-16] MEDS: FAMOTIDINE 20MG/2ML VIAL IV SCH ×2 (08:57→20:48)
[2022-02-16] MEDS: PHENYTOIN SODIUM 100MG/2ML VIAL IV SCH ×2 (08:57→17:30)
[2022-02-16] MEDS: AMLODIPINE 5MG TABLET PO SCH ×2 (09:00→21:40)
[2022-02-16] MEDS: DOXYCYCLINE HYCLATE 100MG CAPSULE PO SCH ×2 (09:14→17:30)
[2022-02-16] MEDS ORDERED: KCL 20MEQ/100ML PREMIX 100 ML IV NR (11:00)
[2022-02-16 13:10] LABS: ANTI-NUCLEAR ANTIBODIES DIRECT Negative (Negative)
[2022-02-16 14:31] LABS: BG CARBOXYHEMOGLOBIN 0.3 % (0.5-1.5); BG DEOXYHEMOGLOBIN 1.7 % (0.0-5.0); BG FRACTION INSPIRED OXYGEN 30; BG HCO3 ACT 28.3 mmol/L (22.0-26.0); BG METHEMOGLOBIN 0.2 % (0.0-1.5); BG OXYGEN SATURATION 98.3 % (92.0-98.5); BG OXYHEMOGLOBIN 97.8 % (94.0-97.0); BG PCO2 37.5 mmHg (35.0-45.0); BG PH 7.496 (7.350-7.450); BG SAMPLE SITE RIGHT RADIAL; BG TOTAL HEMOGLOBIN 13.2 g/dL (12.0-18.0); BG VENT MODE VENT - CPAP
[2022-02-16] MEDS: ENOXAPARIN 40MG/0.4ML SYR SUBCUT SCH (15:02)
[2022-02-16] MEDS: PHENOBARBITAL SODIUM 130MG/ML 1ML IV SCH (20:45)
[2022-02-17] VITALS (31 sets, daily range): BP systolic 118–169; BP diastolic 68–103
[2022-02-17] MEDS: ACYCLOVIR INJ 750 MG in DEXT 5% WATER 100 ML IV SCH ×3 (01:35→17:56)
[2022-02-17] MEDS: DEXT 5%/LACTATED RINGERS 1,000 ML IV SCH ×3 (01:35→17:57)
[2022-02-17] MEDS: IPRATROPIUM BROMIDE (0.02%) 0.5MG/2.5ML NEB HHN SCH ×4 (01:53→20:20)
[2022-02-17 05:51] LABS: HEMATOCRIT 39.5 % (36.0-48.0); HEMOGLOBIN 13.1 g/dL (12.0-16.0); MEAN CORPUSCULAR HEMOGLOBIN 29.8 pg (28.0-32.0); PLATELET 243 x1000/uL (130-400); RED BLOOD CELL COUNT 4.39 mill/uL (4.2-5.4); RED CELL DISTRIBUTION WIDTH 13.2 % (11.6-14.6)
[2022-02-17] MEDS: PIPERACILLIN/TAZOBACTAM 3.375 G in DEXTROSE 5% WATER 50 ML IV SCH ×2 (06:31→13:21)
[2022-02-17] MEDS: NITROGLYCERIN OINT 1GM/INCH UDPKT TD SCH ×2 (06:31→13:20)
[2022-02-17 06:35] LABS: CHLORIDE 100 mEq/L (98-107)
[2022-02-17] MEDS: PHENOBARBITAL SODIUM 130MG/ML 1ML IV SCH (06:53)
[2022-02-17] MEDS ORDERED: LIDOCAINE HCL/PF 1% 10 MG/ML 5ML VIAL ONE (08:06)
[2022-02-17 08:42] LABS: BG CARBOXYHEMOGLOBIN 1.5 % (0.5-1.5); BG DEOXYHEMOGLOBIN 2.2 % (0.0-5.0); BG FRACTION INSPIRED OXYGEN 30; BG HCO3 ACT 28.4 mmol/L (22.0-26.0); BG METHEMOGLOBIN 0.1 % (0.0-1.5); BG OXYGEN SATURATION 97.8 % (92.0-98.5); BG OXYHEMOGLOBIN 96.2 % (94.0-97.0); BG PCO2 37.5 mmHg (35.0-45.0); BG PH 7.497 (7.350-7.450); BG PO2 102.6 mmHg (75.0-100.0); BG SAMPLE SITE RIGHT RADIAL; BG TOTAL HEMOGLOBIN 13.7 g/dL (12.0-18.0); BG VENT MODE NASAL CANNULA
[2022-02-17] MEDS: AMLODIPINE 5MG TABLET PO SCH (09:00)
[2022-02-17] MEDS: LEVETIRACETAM 1,500 MG in SODIUM CHLORIDE 0.9% 100 ML IV SCH ×2 (09:24→20:25)
[2022-02-17] MEDS: FAMOTIDINE 20MG/2ML VIAL IV SCH (09:24)
[2022-02-17] MEDS: PHENYTOIN SODIUM 100MG/2ML VIAL IV SCH (09:24)
[2022-02-17] MEDS: ENOXAPARIN 40MG/0.4ML SYR SUBCUT SCH (13:20)
[2022-02-17] MEDS ORDERED: PHENYTOIN SODIUM 500 MG in SODIUM CHLORIDE 0.9% 50 ML IV ONE ×2 (15:00→15:15)
[2022-02-17] MEDS ORDERED: PHENYTOIN SODIUM 100MG/2ML VIAL IV SCH (17:00)
[2022-02-17] MEDS: MIDAZOLAM HCL 100 MG in SODIUM CHLORIDE 0.9% 80 ML IV PRN (20:25)
[2022-02-17 20:37] LABS: BG BASE EXCESS 7.6 mmol/L (-2.0-2.0); BG CARBOXYHEMOGLOBIN 0.2 % (0.5-1.5); BG DEOXYHEMOGLOBIN 1.2 % (0.0-5.0); BG FRACTION INSPIRED OXYGEN 60; BG HCO3 ACT 32.4 mmol/L (22.0-26.0); BG METHEMOGLOBIN 0.7 % (0.0-1.5); BG OXYGEN SATURATION 98.8 % (92.0-98.5); BG OXYHEMOGLOBIN 97.9 % (94.0-97.0); BG PCO2 45.6 mmHg (35.0-45.0); BG PH 7.469 (7.350-7.450); BG PO2 202.4 mmHg (75.0-100.0); BG SAMPLE SITE RIGHT RADIAL; BG TOTAL HEMOGLOBIN 14.7 g/dL (12.0-18.0); BG VENT MODE VENT - AC
[2022-02-18] VITALS (66 sets, daily range): BP systolic 99–131; BP diastolic 53–87
[2022-02-18] MEDS: IPRATROPIUM BROMIDE (0.02%) 0.5MG/2.5ML NEB HHN SCH ×4 (00:50→20:39)
[2022-02-18] MEDS: DEXT 5%/LACTATED RINGERS 1,000 ML IV SCH ×3 (04:05→17:03)
[2022-02-18] MEDS: ACYCLOVIR INJ 750 MG in DEXT 5% WATER 100 ML IV SCH ×3 (04:05→17:03)
[2022-02-18] MEDS: PIPERACILLIN/TAZOBACTAM 3.375 G in DEXTROSE 5% WATER 50 ML IV SCH ×3 (04:07→13:38)
[2022-02-18] MEDS: PHENYTOIN SODIUM 300 MG in SODIUM CHLORIDE 0.9% 50 ML IV SCH ×2 (04:07→10:33)
[2022-02-18] MEDS: NITROGLYCERIN OINT 1GM/INCH UDPKT TD SCH ×4 (04:15→22:00)
[2022-02-18] MEDS: AMLODIPINE 5MG TABLET PO SCH ×3 (04:16→21:46)
[2022-02-18] MEDS: FAMOTIDINE 20MG/2ML VIAL IV SCH ×3 (04:18→20:11)
[2022-02-18 05:46] LABS: BASOPHILS % 0.3 % (0.0-2.0); EOSINOPHILS % 0.9 % (0.0-5.0); HEMATOCRIT. 38.1 % (36.0-48.0); HEMOGLOBIN. 12.8 g/dL (12.0-16.0); LYMPHOCYTES % 29.5 % (20.0-50.0); MEAN CORPUSCULAR HEMOGLOBIN 29.8 pg (28.0-32.0); MEAN CORPUSCULAR VOLUME 89.1 fL (81.0-99.0); MEAN PLATELET VOLUME 9.7 fl (7.4-10.4); MONOCYTES % 9.1 % (2.0-8.0); NEUTROPHILS % 60.2 % (40.0-76.0); PLATELET 223 x1000/uL (130-400); RED BLOOD CELL COUNT 4.28 mill/uL (4.2-5.4)
[2022-02-18 06:26] LABS: CHLORIDE 99 mEq/L (98-107)
[2022-02-18 07:46] LABS: BG BASE EXCESS 6.1 mmol/L (-2.0-2.0); BG CARBOXYHEMOGLOBIN 0.3 % (0.5-1.5); BG DEOXYHEMOGLOBIN 1.2 % (0.0-5.0); BG HCO3 ACT 28.9 mmol/L (22.0-26.0); BG METHEMOGLOBIN 0.3 % (0.0-1.5); BG OXYGEN SATURATION 98.8 % (92.0-98.5); BG OXYHEMOGLOBIN 98.2 % (94.0-97.0); BG PCO2 35.7 mmHg (35.0-45.0); BG PH 7.526 (7.350-7.450); BG SAMPLE SITE RIGHT RADIAL; BG TOTAL HEMOGLOBIN 12.9 g/dL (12.0-18.0); BG VENT MODE VENT - AC
[2022-02-18] MEDS ORDERED: POTASSIUM CHLORIDE 20MEQ/PACKET PO NR (08:00)
[2022-02-18] MEDS ORDERED: KCL 20MEQ/100ML PREMIX 100 ML IV NR (09:00)
[2022-02-18] MEDS: MIDAZOLAM HCL 100 MG in SODIUM CHLORIDE 0.9% 80 ML IV PRN ×2 (09:20→20:19)
[2022-02-18] MEDS: LEVETIRACETAM 1,500 MG in SODIUM CHLORIDE 0.9% 100 ML IV SCH (09:21)
[2022-02-18] MEDS: ENOXAPARIN 40MG/0.4ML SYR SUBCUT SCH (13:38)
[2022-02-18] MEDS ORDERED: PHENYTOIN SODIUM 1,000 MG in SODIUM CHLORIDE 0.9% 100 ML IV NR (20:30)
[2022-02-18] MEDS: PHENOBARBITAL SODIUM 130MG/ML 1ML IV SCH (21:44)
[2022-02-19] VITALS (45 sets, daily range): BP systolic 103–131; BP diastolic 58–92
[2022-02-19] MEDS: PIPERACILLIN/TAZOBACTAM 3.375 G in DEXTROSE 5% WATER 50 ML IV SCH ×4 (00:37→21:50)
[2022-02-19] MEDS: IPRATROPIUM BROMIDE (0.02%) 0.5MG/2.5ML NEB HHN SCH ×4 (02:39→19:56)
[2022-02-19] MEDS: DEXT 5%/LACTATED RINGERS 1,000 ML IV SCH ×3 (03:00→17:14)
[2022-02-19] MEDS: LEVETIRACETAM 1,500 MG in SODIUM CHLORIDE 0.9% 100 ML IV SCH ×3 (03:00→21:50)
[2022-02-19] MEDS: ACYCLOVIR INJ 750 MG in DEXT 5% WATER 100 ML IV SCH ×3 (03:01→19:00)
[2022-02-19 05:05] LABS: BASOPHILS % 0.5 % (0.0-2.0); EOSINOPHILS % 2.1 % (0.0-5.0); LYMPHOCYTES % 22.5 % (20.0-50.0); MEAN CORPUSCULAR HEMOGLOBIN 30.1 pg (28.0-32.0); MEAN CORPUSCULAR VOLUME 89.9 fL (81.0-99.0); MEAN PLATELET VOLUME 9.2 fl (7.4-10.4); MONOCYTES % 8.5 % (2.0-8.0); NEUTROPHILS % 66.4 % (40.0-76.0); PLATELET 203 x1000/uL (130-400); RED CELL DISTRIBUTION WIDTH 13.2 % (11.6-14.6)
[2022-02-19] MEDS: NITROGLYCERIN OINT 1GM/INCH UDPKT TD SCH (05:16)
[2022-02-19 05:24] LABS: CHLORIDE 106 mEq/L (98-107)
[2022-02-19] MEDS ORDERED: POTASSIUM CHLORIDE 20MEQ/PACKET PO SCH (07:15)
[2022-02-19] MEDS: MIDAZOLAM HCL 100 MG in SODIUM CHLORIDE 0.9% 80 ML IV PRN ×2 (07:47→17:15)
[2022-02-19] MEDS: AMLODIPINE 5MG TABLET PO SCH (08:09)
[2022-02-19] MEDS: FAMOTIDINE 20MG/2ML VIAL IV SCH ×2 (08:10→21:51)
[2022-02-19] MEDS ORDERED: KCL 20MEQ/100ML PREMIX 100 ML IV SCH (09:00)
[2022-02-19] MEDS ORDERED: MAGNESIUM 2 G PREMIX 50 ML IV SCH (10:00)
[2022-02-19 10:11] LABS: BG BASE EXCESS 5.6 mmol/L (-2.0-2.0); BG CARBOXYHEMOGLOBIN 0.7 % (0.5-1.5); BG DEOXYHEMOGLOBIN 2.1 % (0.0-5.0); BG FRACTION INSPIRED OXYGEN 30; BG HCO3 ACT 28.7 mmol/L (22.0-26.0); BG METHEMOGLOBIN 0.2 % (0.0-1.5); BG OXYGEN SATURATION 97.9 % (92.0-98.5); BG PCO2 36.5 mmHg (35.0-45.0); BG PH 7.514 (7.350-7.450); BG PO2 96.9 mmHg (75.0-100.0); BG SAMPLE SITE RIGHT RADIAL; BG TOTAL HEMOGLOBIN 12.1 g/dL (12.0-18.0); BG VENT MODE VENT - AC
[2022-02-19] MEDS: PHENYTOIN SODIUM 300 MG in SODIUM CHLORIDE 0.9% 50 ML IV SCH ×2 (10:14→21:50)
[2022-02-19 13:09] LABS: WEST NILE VIRUS CSF IGG Negative (Negative); WEST NILE VIRUS CSF IGM Negative (Negative)
[2022-02-19] MEDS: ENOXAPARIN 40MG/0.4ML SYR SUBCUT SCH (14:24)
[2022-02-19 16:52] LABS: CHLORIDE 109 mEq/L (98-107)
[2022-02-19] MEDS ORDERED: PHENYTOIN SODIUM 500 MG in SODIUM CHLORIDE 0.9% 50 ML IV NR (17:30)
[2022-02-19] MEDS: PHENOBARBITAL SODIUM 130MG/ML 1ML IV SCH (20:00)
[2022-02-20] VITALS (92 sets, daily range): BP systolic 90–159; BP diastolic 44–116
[2022-02-20] MEDS: IPRATROPIUM BROMIDE (0.02%) 0.5MG/2.5ML NEB HHN SCH ×4 (02:04→20:18)
[2022-02-20] MEDS: ACYCLOVIR INJ 750 MG in DEXT 5% WATER 100 ML IV SCH ×3 (03:22→17:13)
[2022-02-20] MEDS: DEXT 5%/LACTATED RINGERS 1,000 ML IV SCH ×3 (03:23→17:13)
[2022-02-20 04:52] LABS: BASOPHILS % 0.8 % (0.0-2.0); EOSINOPHILS % 2.8 % (0.0-5.0); HEMATOCRIT. 35.6 % (36.0-48.0); HEMOGLOBIN. 11.9 g/dL (12.0-16.0); LYMPHOCYTES % 23.7 % (20.0-50.0); MEAN CORPUSCULAR HEMOGLOBIN 30.2 pg (28.0-32.0); MEAN CORPUSCULAR VOLUME 90.5 fL (81.0-99.0); MEAN PLATELET VOLUME 9.2 fl (7.4-10.4); NEUTROPHILS % 62.7 % (40.0-76.0); PLATELET 200 x1000/uL (130-400); RED BLOOD CELL COUNT 3.93 mill/uL (4.2-5.4); RED CELL DISTRIBUTION WIDTH 13.3 % (11.6-14.6)
[2022-02-20 05:00] LABS: CHLORIDE 109 mEq/L (98-107)
[2022-02-20 05:11] LABS: PHOSPHORUS 2.3 mg/dL (2.5-4.9)
[2022-02-20 07:52] LABS: BG BASE EXCESS 3.4 mmol/L (-2.0-2.0); BG CARBOXYHEMOGLOBIN 0.3 % (0.5-1.5); BG HCO3 ACT 26.3 mmol/L (22.0-26.0); BG METHEMOGLOBIN 0.1 % (0.0-1.5); BG OXYHEMOGLOBIN 97.6 % (94.0-97.0); BG PCO2 34.4 mmHg (35.0-45.0); BG PH 7.501 (7.350-7.450); BG PO2 112.3 mmHg (75.0-100.0); BG SAMPLE SITE RIGHT RADIAL; BG TOTAL HEMOGLOBIN 12.7 g/dL (12.0-18.0); BG VENT MODE VENT - AC
[2022-02-20] MEDS: LEVETIRACETAM 1,500 MG in SODIUM CHLORIDE 0.9% 100 ML IV SCH ×2 (08:57→20:28)
[2022-02-20] MEDS: PHENYTOIN SODIUM 300 MG in SODIUM CHLORIDE 0.9% 50 ML IV SCH ×2 (08:57→20:28)
[2022-02-20] MEDS: MIDAZOLAM HCL 100 MG in SODIUM CHLORIDE 0.9% 80 ML IV PRN ×3 (08:58→23:00)
[2022-02-20] MEDS: DOCUSATE SODIUM 100MG CAPSULE PO PRN (09:15)
[2022-02-20] MEDS: AMLODIPINE 5MG TABLET PO SCH (09:16)
[2022-02-20] MEDS: FAMOTIDINE 20MG/2ML VIAL IV SCH ×2 (09:16→20:30)
[2022-02-20] MEDS ORDERED: SODIUM PHOS,M-BASIC-D-BASIC 20 MM in DEXT 5% WATER 243.3333 ML IV NR (13:00)
[2022-02-20] MEDS: ENOXAPARIN 40MG/0.4ML SYR SUBCUT SCH (13:48)
[2022-02-20] MEDS: PHENOBARBITAL SODIUM 130MG/ML 1ML IV SCH (20:24)
[2022-02-21] VITALS (86 sets, daily range): BP systolic 94–130; BP diastolic 52–81
[2022-02-21] MEDS: IPRATROPIUM BROMIDE (0.02%) 0.5MG/2.5ML NEB HHN SCH ×4 (02:30→20:27)
[2022-02-21] MEDS: ACYCLOVIR INJ 750 MG in DEXT 5% WATER 100 ML IV SCH ×3 (02:31→17:56)
[2022-02-21 04:44] LABS: HEMATOCRIT 31.9 % (36.0-48.0); HEMOGLOBIN 10.7 g/dL (12.0-16.0); MEAN CORPUSCULAR HEMOGLOBIN 30.5 pg (28.0-32.0); MEAN CORPUSCULAR VOLUME 90.9 fL (81.0-99.0); PLATELET 186 x1000/uL (130-400); RED BLOOD CELL COUNT 3.51 mill/uL (4.2-5.4); RED CELL DISTRIBUTION WIDTH 13.5 % (11.6-14.6)
[2022-02-21 04:54] LABS: CHLORIDE 110 mEq/L (98-107)
[2022-02-21 05:01] LABS: PHOSPHORUS 2.9 mg/dL (2.5-4.9)
[2022-02-21] MEDS: MIDAZOLAM HCL 100 MG in SODIUM CHLORIDE 0.9% 80 ML IV PRN ×2 (06:58→17:57)
[2022-02-21] MEDS: PHENYTOIN SODIUM 300 MG in SODIUM CHLORIDE 0.9% 50 ML IV SCH ×2 (08:12→21:35)
[2022-02-21] MEDS: DEXT 5%/LACTATED RINGERS 1,000 ML IV SCH ×3 (08:12→17:56)
[2022-02-21 08:13] LABS: BG BASE EXCESS 0.2 mmol/L (-2.0-2.0); BG CARBOXYHEMOGLOBIN 0.3 % (0.5-1.5); BG DEOXYHEMOGLOBIN 1.8 % (0.0-5.0); BG FRACTION INSPIRED OXYGEN 30; BG HCO3 ACT 23.9 mmol/L (22.0-26.0); BG METHEMOGLOBIN 0.3 % (0.0-1.5); BG OXYGEN SATURATION 98.2 % (92.0-98.5); BG OXYHEMOGLOBIN 97.6 % (94.0-97.0); BG PCO2 35.9 mmHg (35.0-45.0); BG PH 7.442 (7.350-7.450); BG PO2 134.5 mmHg (75.0-100.0); BG SAMPLE SITE RIGHT RADIAL; BG TOTAL HEMOGLOBIN 12.8 g/dL (12.0-18.0); BG VENT MODE VENT - AC
[2022-02-21] MEDS: LEVETIRACETAM 1,500 MG in SODIUM CHLORIDE 0.9% 100 ML IV SCH ×2 (08:13→21:35)
[2022-02-21] MEDS: AMLODIPINE 5MG TABLET PO SCH (08:13)
[2022-02-21] MEDS: FAMOTIDINE 20MG/2ML VIAL IV SCH ×2 (08:13→21:35)
[2022-02-21] MEDS: ENOXAPARIN 40MG/0.4ML SYR SUBCUT SCH (14:02)
[2022-02-21] MEDS: PHENOBARBITAL SODIUM 130MG/ML 1ML IV SCH (20:00)
[2022-02-22] VITALS (79 sets, daily range): BP systolic 103–139; BP diastolic 36–90
[2022-02-22] MEDS: DEXT 5%/LACTATED RINGERS 1,000 ML IV SCH ×3 (01:36→16:16)
[2022-02-22] MEDS: IPRATROPIUM BROMIDE (0.02%) 0.5MG/2.5ML NEB HHN SCH ×4 (02:46→20:32)
[2022-02-22] MEDS: ACYCLOVIR INJ 750 MG in DEXT 5% WATER 100 ML IV SCH ×3 (02:46→17:31)
[2022-02-22 05:28] LABS: HEMATOCRIT 35.6 % (36.0-48.0); HEMOGLOBIN 11.8 g/dL (12.0-16.0); MEAN CORPUSCULAR HEMOGLOBIN 30.3 pg (28.0-32.0); MEAN CORPUSCULAR VOLUME 91.3 fL (81.0-99.0); PLATELET 223 x1000/uL (130-400); RED CELL DISTRIBUTION WIDTH 13.5 % (11.6-14.6)
[2022-02-22] MEDS: MIDAZOLAM HCL 100 MG in SODIUM CHLORIDE 0.9% 80 ML IV PRN ×2 (05:28→17:10)
[2022-02-22 05:39] LABS: CHLORIDE 107 mEq/L (98-107)
[2022-02-22] MEDS: PHENYTOIN SODIUM 300 MG in SODIUM CHLORIDE 0.9% 50 ML IV SCH ×2 (08:08→21:15)
[2022-02-22 08:25] LABS: BG BASE EXCESS -0.4 mmol/L (-2.0-2.0); BG CARBOXYHEMOGLOBIN 0.3 % (0.5-1.5); BG DEOXYHEMOGLOBIN 2.3 % (0.0-5.0); BG FRACTION INSPIRED OXYGEN 30; BG HCO3 ACT 22.7 mmol/L (22.0-26.0); BG METHEMOGLOBIN 0.3 % (0.0-1.5); BG OXYGEN SATURATION 97.7 % (92.0-98.5); BG OXYHEMOGLOBIN 97.1 % (94.0-97.0); BG PCO2 32.4 mmHg (35.0-45.0); BG PH 7.463 (7.350-7.450); BG PO2 108.8 mmHg (75.0-100.0); BG SAMPLE SITE RIGHT RADIAL; BG TOTAL HEMOGLOBIN 12.4 g/dL (12.0-18.0); BG VENT MODE VENT - AC
[2022-02-22] MEDS: LEVETIRACETAM 1,500 MG in SODIUM CHLORIDE 0.9% 100 ML IV SCH ×2 (08:54→21:14)
[2022-02-22] MEDS: FAMOTIDINE 20MG/2ML VIAL IV SCH ×2 (09:11→20:39)
[2022-02-22] MEDS: ENOXAPARIN 40MG/0.4ML SYR SUBCUT SCH (14:25)
[2022-02-23] VITALS (80 sets, daily range): BP systolic 107–159; BP diastolic 55–103
[2022-02-23] MEDS: DEXT 5%/LACTATED RINGERS 1,000 ML IV SCH ×3 (00:46→20:18)
[2022-02-23] MEDS: ACYCLOVIR INJ 750 MG in DEXT 5% WATER 100 ML IV SCH ×3 (01:42→17:17)
[2022-02-23] MEDS: IPRATROPIUM BROMIDE (0.02%) 0.5MG/2.5ML NEB HHN SCH ×4 (02:22→20:33)
[2022-02-23 05:57] LABS: HEMATOCRIT 34.2 % (36.0-48.0); HEMOGLOBIN 11.5 g/dL (12.0-16.0); MEAN CORPUSCULAR HEMOGLOBIN 30.5 pg (28.0-32.0); MEAN CORPUSCULAR VOLUME 90.5 fL (81.0-99.0); PLATELET 233 x1000/uL (130-400); RED BLOOD CELL COUNT 3.78 mill/uL (4.2-5.4); RED CELL DISTRIBUTION WIDTH 13.6 % (11.6-14.6)
[2022-02-23 06:06] LABS: CHLORIDE 102 mEq/L (98-107)
[2022-02-23 07:45] LABS: BG BASE EXCESS 1.2 mmol/L (-2.0-2.0); BG CARBOXYHEMOGLOBIN 0.6 % (0.5-1.5); BG DEOXYHEMOGLOBIN 2.1 % (0.0-5.0); BG HCO3 ACT 25.8 mmol/L (22.0-26.0); BG METHEMOGLOBIN 0.1 % (0.0-1.5); BG OXYGEN SATURATION 97.9 % (92.0-98.5); BG OXYHEMOGLOBIN 97.2 % (94.0-97.0); BG PCO2 40.8 mmHg (35.0-45.0); BG PH 7.418 (7.350-7.450); BG PO2 112.9 mmHg (75.0-100.0); BG SAMPLE SITE RIGHT RADIAL; BG TOTAL HEMOGLOBIN 12.9 g/dL (12.0-18.0); BG VENT MODE VENT - AC
[2022-02-23] MEDS ORDERED: MIDAZOLAM HCL 100 MG in SODIUM CHLORIDE 0.9% 80 ML IV PRN (07:45)
[2022-02-23] MEDS: FAMOTIDINE 20MG/2ML VIAL IV SCH ×2 (08:33→20:18)
[2022-02-23] MEDS: PHENYTOIN SODIUM 300 MG in SODIUM CHLORIDE 0.9% 50 ML IV SCH ×2 (09:09→20:46)
[2022-02-23] MEDS: LEVETIRACETAM 1,500 MG in SODIUM CHLORIDE 0.9% 100 ML IV SCH ×2 (09:35→20:46)
[2022-02-23] MEDS: ENOXAPARIN 40MG/0.4ML SYR SUBCUT SCH (14:52)
[2022-02-24] VITALS (74 sets, daily range): BP systolic 105–170; BP diastolic 39–102
[2022-02-24] MEDS: IPRATROPIUM BROMIDE (0.02%) 0.5MG/2.5ML NEB HHN SCH ×5 (00:15→20:41)
[2022-02-24] MEDS: ACYCLOVIR INJ 750 MG in DEXT 5% WATER 100 ML IV SCH ×3 (01:32→18:35)
[2022-02-24] MEDS: DEXT 5%/LACTATED RINGERS 1,000 ML IV SCH ×3 (04:27→21:49)
[2022-02-24 05:49] LABS: HEMOGLOBIN 11.4 g/dL (12.0-16.0); MEAN CORPUSCULAR VOLUME 89.4 fL (81.0-99.0); PLATELET 221 x1000/uL (130-400); RED CELL DISTRIBUTION WIDTH 13.5 % (11.6-14.6)
[2022-02-24 06:09] LABS: CHLORIDE 104 mEq/L (98-107)
[2022-02-24] MEDS: FAMOTIDINE 20MG/2ML VIAL IV SCH ×2 (08:22→20:53)
[2022-02-24] MEDS: PHENYTOIN SODIUM 300 MG in SODIUM CHLORIDE 0.9% 50 ML IV SCH ×2 (08:22→21:49)
[2022-02-24] MEDS: DOCUSATE SODIUM 100MG CAPSULE PO PRN (08:22)
[2022-02-24 08:36] LABS: BG BASE EXCESS 2.6 mmol/L (-2.0-2.0); BG CARBOXYHEMOGLOBIN 0.4 % (0.5-1.5); BG DEOXYHEMOGLOBIN 1.7 % (0.0-5.0); BG FRACTION INSPIRED OXYGEN 30; BG HCO3 ACT 27.1 mmol/L (22.0-26.0); BG METHEMOGLOBIN 0.2 % (0.0-1.5); BG OXYGEN SATURATION 98.3 % (92.0-98.5); BG OXYHEMOGLOBIN 97.7 % (94.0-97.0); BG PCO2 41.6 mmHg (35.0-45.0); BG PH 7.432 (7.350-7.450); BG PO2 127.8 mmHg (75.0-100.0); BG SAMPLE SITE LEFT RADIAL; BG TOTAL HEMOGLOBIN 12.4 g/dL (12.0-18.0); BG VENT MODE VENT - AC
[2022-02-24] MEDS ORDERED: PROPOFOL 10MG/ML 100ML 100 ML IV PRN (08:45)
[2022-02-24] MEDS: LEVETIRACETAM 1,500 MG in SODIUM CHLORIDE 0.9% 100 ML IV SCH ×2 (09:17→20:53)
[2022-02-24] MEDS: ENOXAPARIN 40MG/0.4ML SYR SUBCUT SCH (13:43)
[2022-02-24 14:33] LABS: BG BASE EXCESS -0.5 mmol/L (-2.0-2.0); BG CARBOXYHEMOGLOBIN 0.5 % (0.5-1.5); BG DEOXYHEMOGLOBIN 1.9 % (0.0-5.0); BG FRACTION INSPIRED OXYGEN 30; BG HCO3 ACT 23.9 mmol/L (22.0-26.0); BG METHEMOGLOBIN 0.2 % (0.0-1.5); BG OXYGEN SATURATION 98.1 % (92.0-98.5); BG OXYHEMOGLOBIN 97.4 % (94.0-97.0); BG PCO2 38.2 mmHg (35.0-45.0); BG PH 7.414 (7.350-7.450); BG SAMPLE SITE RIGHT RADIAL; BG TOTAL HEMOGLOBIN 12.1 g/dL (12.0-18.0); BG VENT MODE VENT - CPAP
[2022-02-24] MEDS: ACETAMINOPHEN 325MG TABLET PO PRN (20:33)
[2022-02-25] VITALS (41 sets, daily range): BP systolic 119–174; BP diastolic 47–110
[2022-02-25] MEDS: ACYCLOVIR INJ 750 MG in DEXT 5% WATER 100 ML IV SCH ×3 (01:06→18:01)
[2022-02-25] MEDS: DEXT 5%/LACTATED RINGERS 1,000 ML IV SCH (01:07)
[2022-02-25] MEDS: IPRATROPIUM BROMIDE (0.02%) 0.5MG/2.5ML NEB HHN SCH ×3 (01:16→21:04)
[2022-02-25 06:10] LABS: HEMATOCRIT 38.8 % (36.0-48.0); HEMOGLOBIN 12.9 g/dL (12.0-16.0); MEAN CORPUSCULAR HEMOGLOBIN 30.3 pg (28.0-32.0); MEAN CORPUSCULAR VOLUME 90.6 fL (81.0-99.0); PLATELET 254 x1000/uL (130-400); RED BLOOD CELL COUNT 4.28 mill/uL (4.2-5.4); RED CELL DISTRIBUTION WIDTH 13.1 % (11.6-14.6)
[2022-02-25 06:51] LABS: CHLORIDE 99 mEq/L (98-107)
[2022-02-25 08:31] LABS: BG BASE EXCESS 1.4 mmol/L (-2.0-2.0); BG CARBOXYHEMOGLOBIN 0.9 % (0.5-1.5); BG DEOXYHEMOGLOBIN 4.1 % (0.0-5.0); BG FRACTION INSPIRED OXYGEN 21; BG HCO3 ACT 25.8 mmol/L (22.0-26.0); BG METHEMOGLOBIN 0.5 % (0.0-1.5); BG OXYGEN SATURATION 95.8 % (92.0-98.5); BG OXYHEMOGLOBIN 94.5 % (94.0-97.0); BG PCO2 40.2 mmHg (35.0-45.0); BG PH 7.426 (7.350-7.450); BG PO2 79.4 mmHg (75.0-100.0); BG SAMPLE SITE RIGHT RADIAL; BG TOTAL HEMOGLOBIN 13.6 g/dL (12.0-18.0); BG VENT MODE ROOM AIR
[2022-02-25] MEDS: PHENYTOIN SODIUM 300 MG in SODIUM CHLORIDE 0.9% 50 ML IV SCH ×3 (08:44→20:18)
[2022-02-25] MEDS: FAMOTIDINE 20MG/2ML VIAL IV SCH ×2 (08:44→20:18)
[2022-02-25] MEDS: LEVETIRACETAM 1,500 MG in SODIUM CHLORIDE 0.9% 100 ML IV SCH ×2 (08:44→21:09)
[2022-02-25] MEDS: LORAZEPAM 2MG/ML CPJ IV PRN (13:50)
[2022-02-25] MEDS: ENOXAPARIN 40MG/0.4ML SYR SUBCUT SCH (14:00)
[2022-02-25 15:27] LABS: GLUCOSE CSF 76 mg/dL (41-75)
[2022-02-25] MEDS: CLONIDINE 0.1MG TABLET PO PRN (17:12)
[2022-02-25] MEDS ORDERED: THIAMINE HCL 100 MG in SODIUM CHLORIDE 0.9% 49 ML IV SCH (20:00)
[2022-02-26] VITALS (54 sets, daily range): BP systolic 107–232; BP diastolic 27–149
[2022-02-26] MEDS: IPRATROPIUM BROMIDE (0.02%) 0.5MG/2.5ML NEB HHN SCH ×4 (01:00→20:02)
[2022-02-26] MEDS: ACYCLOVIR INJ 750 MG in DEXT 5% WATER 100 ML IV SCH ×3 (01:26→17:02)
[2022-02-26 05:57] LABS: HEMATOCRIT 40.4 % (36.0-48.0); HEMOGLOBIN 13.5 g/dL (12.0-16.0); MEAN CORPUSCULAR HEMOGLOBIN 30.3 pg (28.0-32.0); MEAN CORPUSCULAR VOLUME 90.6 fL (81.0-99.0); PLATELET 253 x1000/uL (130-400); RED BLOOD CELL COUNT 4.46 mill/uL (4.2-5.4); RED CELL DISTRIBUTION WIDTH 13.1 % (11.6-14.6)
[2022-02-26 06:37] LABS: PHOSPHORUS 2.6 mg/dL (2.5-4.9)
[2022-02-26 07:11] LABS: CHLORIDE 96 mEq/L (98-107)
[2022-02-26 08:58] LABS: BG BASE EXCESS 2.5 mmol/L (-2.0-2.0); BG CARBOXYHEMOGLOBIN 0.7 % (0.5-1.5); BG DEOXYHEMOGLOBIN 3.1 % (0.0-5.0); BG FRACTION INSPIRED OXYGEN 21; BG HCO3 ACT 25.6 mmol/L (22.0-26.0); BG METHEMOGLOBIN 0.3 % (0.0-1.5); BG OXYGEN SATURATION 96.9 % (92.0-98.5); BG OXYHEMOGLOBIN 95.9 % (94.0-97.0); BG PCO2 34.8 mmHg (35.0-45.0); BG PH 7.484 (7.350-7.450); BG PO2 88.5 mmHg (75.0-100.0); BG SAMPLE SITE RIGHT RADIAL; BG VENT MODE ROOM AIR
[2022-02-26] MEDS: AMLODIPINE 5MG TABLET PO SCH (09:32)
[2022-02-26] MEDS: FAMOTIDINE 20MG/2ML VIAL IV SCH ×2 (09:32→21:38)
[2022-02-26] MEDS: LACTATED RINGERS 1,000 ML IV SCH (09:36)
[2022-02-26] MEDS: LEVETIRACETAM 1,500 MG in SODIUM CHLORIDE 0.9% 100 ML IV SCH (10:43)
[2022-02-26] MEDS: CLONIDINE 0.1MG TABLET PO PRN (11:02)
[2022-02-26] MEDS ORDERED: LORAZEPAM 2MG/ML CPJ IV NR (13:00)
[2022-02-26] MEDS ORDERED: ZOLPIDEM TARTRATE 5MG TABLET PO ONE (13:00)
[2022-02-26 16:17] LABS: BASOPHILS % 0.9 % (0.0-2.0); EOSINOPHILS % 0.3 % (0.0-5.0); HEMATOCRIT. 39.4 % (36.0-48.0); HEMOGLOBIN. 12.9 g/dL (12.0-16.0); LYMPHOCYTES % 18.8 % (20.0-50.0); MEAN CORPUSCULAR HEMOGLOBIN 29.6 pg (28.0-32.0); MEAN CORPUSCULAR VOLUME 90.5 fL (81.0-99.0); MEAN PLATELET VOLUME 10.1 fl (7.4-10.4); PLATELET 274 x1000/uL (130-400); RED BLOOD CELL COUNT 4.35 mill/uL (4.2-5.4); RED CELL DISTRIBUTION WIDTH 13.4 % (11.6-14.6)
[2022-02-26] MEDS: ENOXAPARIN 40MG/0.4ML SYR SUBCUT SCH (16:21)
[2022-02-26] MEDS ORDERED: PHENYTOIN SODIUM 200 MG in SODIUM CHLORIDE 0.9% 50 ML IV SCH (21:00)
[2022-02-26] MEDS: LORAZEPAM 2MG/ML CPJ IV PRN (21:38)
[2022-02-27] VITALS: BP 111/72
[2022-02-27] MEDS: IPRATROPIUM BROMIDE (0.02%) 0.5MG/2.5ML NEB HHN SCH ×4 (01:05→21:00)
[2022-02-27] MEDS: LEVETIRACETAM 1,500 MG in SODIUM CHLORIDE 0.9% 100 ML IV SCH ×3 (02:11→21:34)
[2022-02-27] MEDS: ACYCLOVIR INJ 750 MG in DEXT 5% WATER 100 ML IV SCH ×4 (02:12→21:35)
[2022-02-27] MEDS: THIAMINE HCL 100 MG in SODIUM CHLORIDE 0.9% 49 ML IV SCH (02:12)
[2022-02-27 04:00] VITALS: BP 109/68
[2022-02-27] MEDS: LACTATED RINGERS 1,000 ML IV SCH ×3 (05:41→21:42)
[2022-02-27 08:00] VITALS: BP 127/83
[2022-02-27] MEDS: FAMOTIDINE 20MG/2ML VIAL IV SCH ×2 (10:14→21:35)
[2022-02-27] MEDS: AMLODIPINE 5MG TABLET PO SCH (10:14)
[2022-02-27 12:00] VITALS: BP 129/86
[2022-02-27] MEDS ORDERED: PHENYTOIN SODIUM 100MG/2ML VIAL IV SCH (12:00)
[2022-02-27 12:19] LABS: HEMATOCRIT 38.9 % (36.0-48.0); HEMOGLOBIN 13.1 g/dL (12.0-16.0); MEAN CORPUSCULAR HEMOGLOBIN 30.6 pg (28.0-32.0); MEAN CORPUSCULAR VOLUME 91.1 fL (81.0-99.0); RED BLOOD CELL COUNT 4.27 mill/uL (4.2-5.4); RED CELL DISTRIBUTION WIDTH 13.5 % (11.6-14.6)
[2022-02-27 13:00] LABS: CHLORIDE 100 mEq/L (98-107)
[2022-02-27] MEDS: ENOXAPARIN 40MG/0.4ML SYR SUBCUT SCH (13:01)
[2022-02-27 16:00] VITALS: BP 128/63
[2022-02-27] MEDS: PHENYTOIN SODIUM 200 MG in SODIUM CHLORIDE 0.9% 50 ML IV SCH ×2 (16:23→22:00)
[2022-02-27 20:40] VITALS: BP 145/93
[2022-02-27] MEDS ORDERED: PHENYTOIN SODIUM 200 MG in SODIUM CHLORIDE 0.9% 50 ML IV SCH (21:00)
[2022-02-27] MEDS: LORAZEPAM 2MG/ML CPJ IV PRN (21:48)
[2022-02-28 00:07] VITALS: BP 129/64
[2022-02-28] MEDS: IPRATROPIUM BROMIDE (0.02%) 0.5MG/2.5ML NEB HHN SCH ×4 (01:05→20:17)
[2022-02-28 04:00] VITALS: BP 134/76
[2022-02-28] MEDS: THIAMINE HCL 100 MG in SODIUM CHLORIDE 0.9% 49 ML IV SCH ×2 (04:39→22:30)
[2022-02-28 07:44] LABS: HEMATOCRIT 37.4 % (36.0-48.0); HEMOGLOBIN 12.6 g/dL (12.0-16.0); MEAN CORPUSCULAR HEMOGLOBIN 30.5 pg (28.0-32.0); MEAN CORPUSCULAR VOLUME 90.4 fL (81.0-99.0); PLATELET 261 x1000/uL (130-400); RED BLOOD CELL COUNT 4.14 mill/uL (4.2-5.4); RED CELL DISTRIBUTION WIDTH 13.5 % (11.6-14.6)
[2022-02-28 08:00] VITALS: BP 141/89
[2022-02-28 09:09] LABS: CHLORIDE 100 mEq/L (98-107)
[2022-02-28] MEDS: FAMOTIDINE 20MG/2ML VIAL IV SCH ×2 (09:31→22:30)
[2022-02-28] MEDS: AMLODIPINE 5MG TABLET PO SCH (09:31)
[2022-02-28] MEDS: PHENYTOIN SODIUM 200 MG in SODIUM CHLORIDE 0.9% 50 ML IV SCH ×2 (09:31→22:30)
[2022-02-28] MEDS: LEVETIRACETAM 1,500 MG in SODIUM CHLORIDE 0.9% 100 ML IV SCH (10:56)
[2022-02-28] MEDS ORDERED: POTASSIUM CHLORIDE 20MEQ TABLET SR PO NR (11:30)
[2022-02-28] MEDS: ACYCLOVIR INJ 750 MG in DEXT 5% WATER 100 ML IV SCH ×3 (11:39→22:29)
[2022-02-28 12:00] VITALS: BP 159/98
[2022-02-28] MEDS: ENOXAPARIN 40MG/0.4ML SYR SUBCUT SCH (13:21)
[2022-02-28] MEDS ORDERED: VALA100044 MT (13:32)
[2022-02-28] MEDS ORDERED: PHEN100C4 MT (13:32)
[2022-02-28] MEDS ORDERED: KEPP500 MT (13:32)
[2022-02-28] MEDS: LACTATED RINGERS 1,000 ML IV SCH (15:45)
[2022-02-28 16:00] VITALS: BP 147/83
[2022-02-28 20:32] VITALS: BP 131/83
[2022-02-28] MEDS: LORAZEPAM 2MG/ML CPJ IV PRN ×2 (22:29→22:54)
[2022-03-01] VITALS: BP 125/80
[2022-03-01] MEDS: IPRATROPIUM BROMIDE (0.02%) 0.5MG/2.5ML NEB HHN SCH ×3 (02:44→14:59)
[2022-03-01 04:00] VITALS: BP 109/62
[2022-03-01] MEDS: LEVETIRACETAM 1,500 MG in SODIUM CHLORIDE 0.9% 100 ML IV SCH ×2 (05:48→10:57)
[2022-03-01] MEDS ORDERED: PHENYTOIN SODIUM 100MG/2ML VIAL IV SCH (09:00)
[2022-03-01] MEDS: FAMOTIDINE 20MG/2ML VIAL IV SCH (10:58)
[2022-03-01] MEDS: AMLODIPINE 5MG TABLET PO SCH (11:00)
[2022-03-01] MEDS: ACYCLOVIR INJ 750 MG in DEXT 5% WATER 100 ML IV SCH (11:01)
[2022-03-01 12:00] VITALS: BP 120/80
[2022-03-01] MEDS ORDERED: OLANZAPINE 5MG TABLET ODT PO SCH (13:00)
[2022-03-01] MEDS: ENOXAPARIN 40MG/0.4ML SYR SUBCUT SCH (13:37)
[2022-03-01 16:00] VITALS: BP 118/77
[2022-03-01 16:18] VITALS: BP 118/77
[2022-03-03 15:04] LABS: WEST NILE VIRUS CSF IGM NEGATIVE (Negative)
[2022-03-03 15:06] LABS: WEST NILE VIRUS CSF IGG NEGATIVE (Negative)
== END 2022-03-01 19:42 | disposition home or self-care (01) | DRG 870 ==
LOC: ER 11:07 → EDBEDREQ 12:45 → EDBEDREQTM 12:45 → EDBEDREQSVC 12:45 → EDBEDREQTM 13:25 → ENRESERV 13:45 → MICUNO 14:19 → EDBD 14:19 → 8WST 02-11 13:43 → 5EST 02-13 15:10 → MICUNO 02-13 23:55 → 7WST 02-26 16:45
PROVIDERS: ADMIT Internal Medicine; ATTEND Internal Medicine
PROC: 0BH17EZ Insertion of Endotracheal Airway into Trachea, Via Natural or Artificial Opening (ICD-10-PCS; principal; 2022-02-08)
PROC: 5A1945Z Respiratory Ventilation, 24-96 Consecutive Hours (ICD-10-PCS; 2022-02-08)
PROC: 4A00X4Z Measurement of Central Nervous Electrical Activity, External Approach (ICD-10-PCS; 2022-02-12)
PROC: 009U3ZX Drainage of Spinal Canal, Percutaneous Approach, Diagnostic (ICD-10-PCS; 2022-02-12)
PROC: B01BZZZ Fluoroscopy of Spinal Cord (ICD-10-PCS; 2022-02-12)
PROC: 0BH17EZ Insertion of Endotracheal Airway into Trachea, Via Natural or Artificial Opening (ICD-10-PCS; 2022-02-13)
PROC: 5A1945Z Respiratory Ventilation, 24-96 Consecutive Hours (ICD-10-PCS; 2022-02-13)
PROC: 5A09357 Assistance with Respiratory Ventilation, Less than 24 Consecutive Hours, Continuous Positive Airway Pressure (ICD-10-PCS; 2022-02-13)
PROC: 4A00X4Z Measurement of Central Nervous Electrical Activity, External Approach (ICD-10-PCS; 2022-02-16)
PROC: 5A1955Z Respiratory Ventilation, Greater than 96 Consecutive Hours (ICD-10-PCS; 2022-02-17)
PROC: 0BH17EZ Insertion of Endotracheal Airway into Trachea, Via Natural or Artificial Opening (ICD-10-PCS; 2022-02-17)
PROC: 05HY33Z Insertion of Infusion Device into Upper Vein, Percutaneous Approach (ICD-10-PCS; 2022-02-17)
PROC: B54MZZA Ultrasonography of Right Upper Extremity Veins, Guidance (ICD-10-PCS; 2022-02-17)
PROC: 4A00X4Z Measurement of Central Nervous Electrical Activity, External Approach (ICD-10-PCS; 2022-02-19)
PROC: 009U3ZX Drainage of Spinal Canal, Percutaneous Approach, Diagnostic (ICD-10-PCS; 2022-02-25)
PROC: B01BZZZ Fluoroscopy of Spinal Cord (ICD-10-PCS; 2022-02-25)
DX: A41.9 Sepsis, unspecified organism (principal); B00.4 Herpesviral encephalitis; G92.8 Other toxic encephalopathy; J69.0 Pneumonitis due to inhalation of food and vomit; J96.01 Acute respiratory failure with hypoxia; E43 Unspecified severe protein-calorie malnutrition; J96.02 Acute respiratory failure with hypercapnia; J18.9 Pneumonia, unspecified organism; T67.01XA Heatstroke and sunstroke, initial encounter; N17.9 Acute kidney failure, unspecified; N39.0 Urinary tract infection, site not specified; K59.00 Constipation, unspecified; R41.2 Retrograde amnesia; F39 Unspecified mood [affective] disorder; B95.4 Other streptococcus as the cause of diseases classified elsewhere; Z20.822 Contact with and (suspected) exposure to COVID-19; G40.A01 Absence epileptic syndrome, not intractable, with status epilepticus; R73.9 Hyperglycemia, unspecified; G35 Multiple sclerosis; T42.0X5A Adverse effect of hydantoin derivatives, initial encounter; Y92.238 Other place in hospital as the place of occurrence of the external cause; E87.6 Hypokalemia; I11.9 Hypertensive heart disease without heart failure; X58.XXXA Exposure to other specified factors, initial encounter; Y93.89 Activity, other specified; Y92.89 Other specified places as the place of occurrence of the external cause; Z90.710 Acquired absence of both cervix and uterus; Z79.899 Other long term (current) drug therapy; Z68.25 Body mass index [BMI] 25.0-25.9, adult; Y99.8 Other external cause status
CPT/HCPCS: 31500; 36415; 36573; 36600; 62328; 70496; 70498; 70551; 70552; 71045; 80048; 80053; 80061; 80184; 80185; 80202; 80305; 80320; 81001; 81003; 82040; 82140; 82375; 82550; 82553; 82607; 82746; 82805; 82945; 82962; 83036; 83540; 83550; 83605; 83735; 83916; 84100; 84132; 84145; 84157; 84439; 84443; 84478; 84484; 84703; 85025; 85027; 85379; 85651; 86038; 86160; 86592; 86635; 86788; 86789; 87070; 87077; 87116; 87252; 87389; 87426; 87529; 87899; 92610; 93005; 93306; 93970; 94002; 94003; 94640; 94660; 95822; 97116; 97162; 97165; 99285; A6261; A9577; C1725; C9113; J0133; J0330; J1165; J1650; J1953; J2060; J2250; J2270; J2405; J2543; J2560; J2704; J2930; J3370; J3411; J3475; J3480; J3490; J7030; J7050; J7060; J7120; J7121; Q9967; A4315; A5200; G0480